=== PATIENT | male | born 1945 | race Caucasian/White ===

== ENCOUNTER → 2016-08-17 | Outpatient (CLI) | payer MEDICARE, BC | END | disposition home or self-care (01) | LOC: GMAJ 10:23 | PROVIDERS: ATTEND Family Medicine | DX: Z12.5 Encounter for screening for malignant neoplasm of prostate (principal) ==

== ENCOUNTER → 2017-12-19 | Outpatient (CLI) | payer MEDICARE, BC ==
--- NOTE | 2017-12-19 15:15 | US ---
EXAM DESCRIPTION: Venous,Lower Extremity LT CLINICAL HISTORY: PAIN IN LEFT LEG COMPARISON: None Available. TECHNIQUE: Left lower extremity venous duplex FINDINGS: Doppler evaluation of the left lower extremity deep veins was performed. Normal color flow is seen in the common femoral, superficial femoral, profunda femoral and greater saphenous veins. Normal flow is seen in the popliteal vein and veins below the knee in the calf. Normal venous compressibility and flow augmentation. IMPRESSION: Negative for evidence of deep venous thrombosis on the left lower extremity venous Doppler sonogram. Electronically signed by: Michael Flores MD 12/19/2017 3:14 PM CDT
== END ==
LOC: LAB.NP 12:36
PROVIDERS: ATTEND Physician Assistant
DX: M79.605 Pain in left leg (principal); R39.12 Poor urinary stream; Z12.5 Encounter for screening for malignant neoplasm of prostate

== ENCOUNTER → 2017-12-26 | Outpatient (CLI) | payer MEDICARE, BC ==
--- NOTE | 2017-12-26 09:59 | MRI ---
EXAM DESCRIPTION: Lumbar Spine w/o Contrast CLINICAL HISTORY: 72 years Male, LOW BACK PAIN COMPARISON: Radiographs of the lumbar spine dated 12/24/2017. MRI of the lumbar spine dated 08/11/2014. TECHNIQUE: Multiplanar multiecho imaging of the lumbar spine was performed without intravenous contrast administration. FINDINGS: There is straightening of the normal lordotic curvature of the lumbar spine. The vertebral body heights are well-maintained with no acute compression deformity. Multilevel intervertebral disc space narrowing is noted. The conus medullaris terminates at L2 vertebral body. The visualized spinal cord demonstrates no signal abnormality. L1-L2: Posterior disc osteophyte complex and facet arthropathy with no significant canal stenosis. There is mild bilateral neural foraminal narrowing. L2-L3: Diffuse disc bulge and facet arthropathy with no canal stenosis. There is moderate right and mild left neural foraminal narrowing. L3-L4: Diffuse disc bulge and bilateral facet arthropathy with no canal stenosis. Changes of posterior laminectomy are identified. Moderate bilateral neural foraminal narrowing is noted. L4-L5: Grade 2 anterolisthesis of L4 over L5. No canal stenosis. There is severe bilateral neural foraminal narrowing. L5-S1: Posterior disc osteophyte complex and facet arthropathy with no canal stenosis. There is moderate bilateral neural foraminal narrowing. A simple cyst is identified in the left kidney. Remainder of the visualized prevertebral and paravertebral soft tissues appear normal. IMPRESSION: Multilevel degenerative disc disease and facet arthropathy throughout the lumbar spine with changes worse at L4-L5 level. Electronically signed by: Reina Encarnacion MD 12/26/2017 9:58 AM CDT
== END ==
LOC: MRI 09:00
PROVIDERS: ATTEND Physician Assistant
DX: M51.16 Intervertebral disc disorders with radiculopathy, lumbar region (principal)

== ENCOUNTER 2017-12-28 10:50 | Inpatient (IN) | payer MEDICARE, BC ==
--- NOTE | 2017-12-28 11:13 | HP ---
SUPERVISING PHYSICIAN: Sony Machado M.D. CHIEF COMPLAINT: Hyponatremia and weakness. HISTORY OF PRESENT ILLNESS: Mr. Young is a 72 year-old male patient of Dr. Kahn. With his longstanding history within the last month of progressively worsening leg pain started on 12/11/17 when he was seen in regular checkup, at which point he worked out and feels like he stretched his leg too much, and started having some left leg pain that was radiating into his groin and back. He was then seen on the Sunday after the appointment. He continued to have worsening pain at which time he contacted EMS and was taken to [facility] where he was diagnosed with muscle spasms and started on Tramadol and muscle relaxer. On 12/19/17, he was having non significant relief and was seen the following Sunday at Dr. Kahn' office at which time he was diagnosed with prostatitis. Labs, Doppler and x-rays were done showing he was mildly hyponatremic and with a concern for prostatitis, was started on ciprofloxacin. Two days after he was having some improvement and then the next day his symptoms returned at which time he presented back to Dr. Kahn' office this week and was seen in followup, and again was noted to be hyponatremic. He was then back in the office today, on the date of admission, and again for followup and was found to have significant hyponatremia worse than previous days. He had been having apparently some confusion that was occurring over the last 4 to 5 days which his , an actual patient, feels like he is talking in circles. I was contacted by ARTHUR New, at the clinic after Dr. Kahn requested the patient be directly admitted to the Medical/Surgical floor at [facility] for further treatment and evaluation of the hyponatremia and confusion. The patient was directly admitted in stable condition. PAST MEDICAL HISTORY: 1. Mixed hyperlipidemia. 2. Hypertension. 3. Colonic polyps. 4. Diverticulosis. 5. Erectile dysfunction. PAST SURGICAL HISTORY: 1. No major surgeries. 2. He had a colonoscopy in 2003 with benign polyps and again in 2008 and noted to have diverticulosis. HOME MEDICATIONS: 1. Tylenol 650 mg t.i.d. 2. Fish oil 1,000 mg daily. 3. Motrin 400 mg b.i.d. 4. Cyclobenzaprine 10 mg every 8 hours as needed for pain. 5. Ultram 50 mg every 4 hours as needed. 6. Ciprofloxacin 500 mg b.i.d. 7. Trulance 3 mg daily. 8. Voltaren 75 mg b.i.d. as needed. 9. Aspirin 81 mg daily. 10. Metoprolol succinate 100 mg daily. 11. Amlodipine 5 mg daily. 12. Pravachol 40 mg at bedtime. 13. Losartan. 14. Potassium. 15. Hydrochlorothiazide 100-25 mg 1 tablet daily. ALLERGIES: NO KNOWN DRUG ALLERGIES. FAMILY HISTORY: Significant for cerebrovascular accidents, coronary artery disease in both mother and father. Mother at age 78 with hypertension. SOCIAL HISTORY: The patient is retired. Lives in [place], [place]. He was in the in the [employer] for 2 years. He is . He has a history of smoking in the past for well over 30 years, but quit approximately 30 years previously. He drinks a glass of wine very rarely. REVIEW OF SYSTEMS: CONSTITUTIONAL: Negative for any fatigue or fever, just generalized weakness. HEENT: Does have a headache that occurred in the last 4 to 5 days. No nasal congestion, ear aches, sore throat. CARDIOVASCULAR: Denies any chest pains, orthopnea, palpitations or pedal edema. RESPIRATORY: Denies any cough, dyspnea. GASTROINTESTINAL: Notes he has issues with constipation and recently started on Trulance. GENITOURINARY: As noted in history of present illness, acute prostatitis but denies any dysuria, hematuria or polyuria. EXTREMITIES: As noted in history of present illness, left sided hip pain radiating into his pelvis and groin area. NEUROLOGIC: Denies any dizziness. Does have a headache. Denies any ataxia, seizures or syncopal episodes. INTEGUMENT: No reported rashes or lesions or skin breakdown. PHYSICAL EXAMINATION: VITAL SIGNS: In the clinic shows temperature 97.9, blood pressure 142/74, pulse 59, respirations 16, satting 98% on room air. Weight in the clinic was 95.4 kg. GENERAL: The patient appears well hydrated in no acute distress. Very pleasant. He is alert. HEENT: Tympanic membranes are partially obscured by cerumen. Oropharynx was pink and moist without any lesions. NECK: Supple, non-tender with full range of motion. No jugular venous distention was noted. CHEST: Lungs are clear to auscultation bilaterally without any rhonchi, wheezing or rales. CARDIOVASCULAR: Regular rate and rhythm without appreciable murmurs, gallops, or rubs. ABDOMEN: Obese but soft, non-tender. Positive bowel sounds. EXTREMITIES: No clubbing, cyanosis or edema. NEUROLOGIC: Cranial nerves II-XII are grossly intact. Facial features were symmetrical. Extraocular movements are within normal limits. There was no notable nystagmus. No other lateralizing or focalized neurological deficits were noted. He was alert and oriented times three. LABORATORY: CBC shows a normal white count at 10,100, hemoglobin 12.1, hematocrit 34.6, platelet count 287,000. Differential does show a left shift. Sed rate was 35. Coagulation studies showed a normal PT and PTT. Chemistries showed sodium 125, potassium 3.2, chloride 86 with a normal anion gap at 13.2, BUN 31, creatinine 1.67. Serum osmolality 258, magnesium normal at 2.2. All liver functions were normal. C reactive protein was less than 0.5. Urinalysis showed to be within normal limits. PSA was pending. RADIOLOGY: Chest x-ray of two view chest per radiology interpretation showed no radiographic evidence of acute cardiopulmonary disease. CT of the head without contrast per radiology interpretation showed no hemorrhage or mass effect. No midline shift. There was noted a minimal periventricular low density in the white matter most likely related to aging and cerebral microvascular disease more prominent in the frontal lobes with atherosclerotic cerebrovascular calcifications. Pelvis and hip x-ray per radiology interpretation showed pronounced lower lumbar disc disease and mild to moderate bilateral hip osteoarthritis with small cam deformities with mild pubic symphysis osteoarthritis. No appreciable fractures of the pelvis or hips were identified, although evaluation of fractures is limited given the degree of osteopenia. ASSESSMENT: 1. Acute hyponatremia, uncertain etiology, with hyperosmolar presentation requiring further evaluation and management possibly secondary to worsening renal function with a noted GFR of 39 exacerbated by thiazide diuretics and NSAID usage. 2. Left hip pain with no evidence of acute trauma or fractures on radiographic studies with cam deformities bilaterally. Etiology uncertain. 3. Acute renal insufficiency possibly secondary to NSAID usage as well as exacerbated by thiazide diuretics. 4. Mild confusion and generalized weakness felt to be possibly secondary to his hyponatremia. 5. Osteopenia as noted on radiographic studies. 6. Acute prostatitis currently on ciprofloxacin. 7. Hypertension. 8. History of diverticulosis. 9. Electrolyte imbalance to include hyponatremia and hypokalemia possibly exacerbating underlying weakness and mild confusion, uncertain etiology. PLAN: The patient is going to be directly admitted to the Medical/Surgical floor for further evaluation of the hyponatremia. Will start him on some normal saline with 40 of potassium. Will hold his thiazide diuretic and limit his oral fluid intake to less than 1800 mL for 24 hours. Will closely monitor his I's and O's. Will plan to repeat laboratory studies in the morning to further evaluate for hyponatremia and kidney function. Will continue his oral medications as appropriate once they have been updated and verified. Will anticipate his length of stay to be at least 2 to 3 days until his sodium levels have normalized and he is no longer symptomatic. Until then, will continue to monitor and treat appropriately. #[id number] [facility]
[2017-12-28] MEDS ORDERED: SODIUM CHLORIDE 0.9% (FLUSH) 10 ML SYG IV PRN (11:17)
[2017-12-28] MEDS ORDERED: IV SET AND CAP CHANGE INJ INJ SCH (11:30)
[2017-12-28] MEDS: KCL 20 MEQ/NS 1,000 ML IVS PRN ×2 (13:23→19:29)
--- NOTE | 2017-12-28 13:31 | RAD ---
Frontal view pelvis. Frontal and frog-leg lateral views of the right hip and left hip. Indication: leg hip and groin pain Comparison: None. Impression: Pronounced lower lumbar disc disease. Mild to moderate bilateral hip osteoarthritis with small cam deformities. Mild pubic symphysis osteoarthritis. No appreciable fracture of the pelvis or hips identified. Evaluation for fracture is limited given the degree of osteopenia. If high clinical concern for acute fracture, correlation with MRI recommended given its greater sensitivity in the osteopenic patient. If the patient cannot tolerate MRI imaging or more urgent imaging is required, CT could be performed, however it is less sensitive in the osteopenic patient when compared to MRI. Osteopenia. If this is a new finding, DEXA scan recommended as well as evaluation for possible osteoporosis treatment. Electronically signed by: Reed Brown MD 12/28/2017 1:30 PM CDT
--- NOTE | 2017-12-28 13:31 | CT ---
EXAM DESCRIPTION: Head: Computed Tomography. CLINICAL HISTORY: BELLA ; hyponatremia. Inpatient. COMPARISON: CT scan of the chest on this visit. TECHNIQUE: Non-helical axial scans through the skull and brain, at 5.0 mm intervals, non-contrast. Axial 2.5 mm reconstructions. Coronal and sagittal 2.0 mm reconstructions. Total Exam DLP: 967.47 mGy-cm. This exam was performed according to our departmental dose-optimization program which includes automated exposure control, adjustment of the mA and/or kV according to patient size and/or use of iterative reconstruction technique; to reduce radiation dose to as low as reasonably achievable (ALARA). FINDINGS: No hemorrhage, no mass-effect, and no midline shift. Minimal bilateral periventricular low-density more evident in the bilateral frontal lobes. No abnormal radiodense material in the brain parenchyma. Vascular calcifications anterior and posterior circulations; physiologic calcifications in the pineal gland and choroid plexus. No effacement or displacement of the ventricles, CSF spaces, or subdural spaces. No extra axial fluid collection or hemorrhage. No gross abnormalities of the bony calvarium. Included paranasal sinuses and mastoid air cells are well - aerated. Bilateral tj bullosa in the middle nasal turbinates IMPRESSION: 1. No hemorrhage, no mass effect, no midline shift. Minimal periventricular low-density in the white matter is most likely related to aging and cerebral microvascular disease. More prominent in the frontal lobes. Atherosclerotic cerebrovascular calcifications. 2. CT scans are insensitive for detecting small CVAs in the first 24 hours after onset. Evaluation of the brain stem is also limited. If symptoms persist, consider NON-EMERGENT MRI scan of the brain with diffusion imaging. 3. Anatomic anomalies in the paranasal sinuses, probably not clinically significant at this time. Electronically signed by: Gurwinder Hernandez MD 12/28/2017 1:29 PM CDT
--- NOTE | 2017-12-28 13:40 | RAD ---
EXAM DESCRIPTION: Chest,2 Views CLINICAL HISTORY: cough; hyponatermia COMPARISON: None FINDINGS: Two-view chest x-ray shows cardiomediastinal silhouette and pulmonary vasculature to be within normal limits. The lungs are normally aerated and clear. Costophrenic angles are sharp. Moderate disc degenerative changes of the thoracic spine are seen. IMPRESSION: No radiographic evidence of acute cardiopulmonary disease. Electronically signed by: Lj Castillo MD 12/28/2017 1:39 PM CDT
--- NOTE | 2017-12-28 16:42 | PCM.CORE ---
Physician DVT/VTE - Nurse DVT Assessment & Total Each Risk Factor Represents 2 Points: Age 60-74 Each Risk Factor is 1 Point: Obesity (BMI >25) DVT Assessment Score: 3 - 5 or more Very High Risk Treatments: Early Ambulation *, Sequential Compression Device Pharmacological: Enoxaparin 40mg SQ Daily
[2017-12-28] MEDS: CIPROFLOXACIN 500 MG TAB PO SCH (20:31)
[2017-12-28] MEDS: ENOXAPARIN SODIUM 40 MG/0.4 ML SYG SUBCU SCH (20:31)
[2017-12-28] MEDS: SODIUM CHLORIDE 0.9% (FLUSH) 10 ML SYG IV SCH (20:32)
[2017-12-28] MEDS: ACETAMINOPHEN 325 MG TAB PO PRN (22:36)
[2017-12-29] MEDS: KCL 20 MEQ/NS 1,000 ML IVS PRN ×2 (02:44→15:46)
[2017-12-29] MEDS: ACETAMINOPHEN 325 MG TAB PO PRN (05:09)
[2017-12-29] MEDS ORDERED: HYDROcodone 5MG/APAP 325MG 1 EA TAB PO PRN (06:47)
[2017-12-29] MEDS ORDERED: HYDROCHLO PO SCH (09:00)
[2017-12-29] MEDS ORDERED: [UNRECOGNIZED DRUG - OTHER] PO SCH (09:00)
[2017-12-29] MEDS ORDERED: LOSARTAN POTASSIUM PO SCH (09:00)
[2017-12-29] MEDS ORDERED: DOCUSATE CALCIUM 240 MG CAP PO ONE (09:19)
[2017-12-29] MEDS ORDERED: MAGNESIUM HYDROXIDE 30 ML UD PO ONE (09:19)
[2017-12-29] MEDS: PLECANATIDE 3 MG PO SCH (09:40)
[2017-12-29] MEDS: ASPIRIN (CHEWABLE) 81 MG TAB PO SCH (09:42)
[2017-12-29] MEDS: FISH OIL 1,200 MG CAP PO SCH (09:42)
[2017-12-29] MEDS: METOPROLOL SUCCINATE XL 100 MG TAB PO SCH (09:42)
[2017-12-29] MEDS: amLODIPine BESYLATE 5 MG TAB PO SCH (09:42)
[2017-12-29] MEDS: LOSARTAN POTASSIUM 100 MG TAB PO SCH (09:42)
[2017-12-29] MEDS: CIPROFLOXACIN 500 MG TAB PO SCH ×2 (09:42→20:22)
[2017-12-29] MEDS: hydroCHLOROthiazide 25 MG TAB PO SCH (09:44)
[2017-12-29] MEDS: SODIUM CHLORIDE 0.9% (FLUSH) 10 ML SYG IV SCH ×2 (09:44→20:22)
[2017-12-29] MEDS: traMADol HCL 50 MG TAB PO PRN (14:01)
--- NOTE | 2017-12-29 16:10 | PN ---
DATE: 12/29/17 SUPERVISING PHYSICIAN: Wesly Flores M.D. SUBJECTIVE: The patient is resting in bed. He notes that his thinking process is much clearer today. He has had no nausea or vomiting or chest pains. He reports that he did have a significant amount of pain again this morning in his left leg but this resolved with [place]. He remains afebrile. OBJECTIVE: VITAL SIGNS: Temperature 98.2, pulse 62, blood pressure 154/68, respirations 16, satting 95% on room air. I's and O's show a positive balance of 1103 with 2603 in, 1500 out. Weight is 93.2 kg. CHEST: Lungs were clear to auscultation. HEART: Regular rate and rhythm. ABDOMEN: Soft, non-tender. Positive bowel sounds. EXTREMITIES: No clubbing, cyanosis or edema. Still does have some pain with extension and flexion of the left hip, but no obvious signs of trauma or deformity. NEUROLOGIC: He remains oriented times three. LABORATORY: Chemistries show an improving sodium at 132, potassium 3.6, BUN 25 , creatinine has gone down to 1.28 with calcium 8.5, creatinine kinase was 133. ASSESSMENT: 1. Acute hyponatremia with hypoosmolar presentation responding to normal saline infusion and fluid restrictions, and stopping thiazide diuretic. 2. Left hip pain, uncertain etiology, with no acute trauma or fractures noted on radiographic studies. 3. Acute renal insufficiency secondary to NSAID usage and some exacerbation by thiazide diuretics, improving. 4. Mild confusion and generalized weakness secondary to his hyponatremia, improving with normalization of his sodium 5. Osteopenia as noted on radiographic studies. 6. Acute prostatitis currently on ciprofloxacin. 7. Hypertension. 8. History of diverticulosis. 9. Electrolyte imbalance that included hyponatremia and hypokalemia exacerbating his weakness and confusion showing improvement of the sodium and normalization of potassium with IV fluids and fluid restrictions and holding thiazide diuretics. PLAN: Will continue with normal saline with potassium until later this afternoon in which time we will saline lock him and plan to recheck labs in the morning. He is encouraged to get up with assistance initially with the nurses and if no concerns for generalized weakness and falls, is encouraged to ambulate and sit in a chair as much as possible. He will continue with fluid restrictions and will hold his thiazide diuretic as well. Will plan to repeat his labs in the morning. Anticipate hopefully stabilization of his sodium and discharging tomorrow if possible. Until then, will continue to monitor and treat appropriately. #[id number] [facility]
[2017-12-29] MEDS: ENOXAPARIN SODIUM 40 MG/0.4 ML SYG SUBCU SCH (20:22)
[2017-12-30] MEDS: traMADol HCL 50 MG TAB PO PRN (05:28)
[2017-12-30] MEDS: FISH OIL 1,200 MG CAP PO SCH (08:53)
[2017-12-30] MEDS: ASPIRIN (CHEWABLE) 81 MG TAB PO SCH (08:54)
[2017-12-30] MEDS: LOSARTAN POTASSIUM 100 MG TAB PO SCH (08:54)
[2017-12-30] MEDS: CIPROFLOXACIN 500 MG TAB PO SCH (08:54)
[2017-12-30] MEDS: METOPROLOL SUCCINATE XL 100 MG TAB PO SCH (08:54)
[2017-12-30] MEDS: amLODIPine BESYLATE 5 MG TAB PO SCH (08:54)
[2017-12-30] MEDS: hydroCHLOROthiazide 25 MG TAB PO SCH (08:55)
[2017-12-30] MEDS: PLECANATIDE 3 MG PO SCH (08:56)
[2017-12-30 10:30] VITALS: BP 131/71; TEMP 98.3; O2SAT 95
--- NOTE | 2017-12-30 20:45 | DS ---
SUPERVISING PHYSICIAN: Dario Kahn M.D. ADMISSION DIAGNOSIS: 1. Acute hyponatremia. 2. Left hip pain. 3. Acute renal insufficiency. 4. Mild confusion and generalized weakness. 5. Osteopenia. 6. Acute prostatitis on Cipro. 7. Hypertension. 8. History of diverticulosis. DISCHARGE DIAGNOSIS: 1. Hyponatremia, resolved. 2. Left hip pain that has proven to be chronic and being worked up as an outpatient. 3. Renal insufficiency, resolved. 4. Mild confusion and generalized weakness, improved. 5. Osteopenia. 6. Acute prostatitis. Will continue on Cipro. 7. Hypertension, but will discontinue the HCTZ. 8. History of diverticulosis. HOSPITAL COURSE: This is a 72 year-old male patient who presented to Dr. Kahn ' office with chronic left leg pain. He was being worked up as an outpatient regarding his leg pain and went to Dr. Kahn' office for followup on date of admission. At that point, he was found to have significant hyponatremia on his labs and was also noted to have some confusion over the prior 4 to 5 days prior to admission. Due to these findings he was referred for admission by Dr. Kahn as a direct admission. Once he was over here, he was placed on IV fluids which is normal saline and had the HCTZ portion of his medications discontinued. The Cozaar actually was continued. All other medications were continued as well. Over the next couple of days his labs stabilized and he had a normal sodium level, and his potassium was within normal range as well. Therefore on date of discharge this morning he was discharged in stable condition with instructions to not continue the HCTZ. Therefore I wrote a separate prescription for his Cozaar to where it was not in combination with HCTZ. I instructed him to not take the combination medication and he verbalized understanding. I also instructed him that he will need to go to Dr. Kahn' office for followup laboratory tests and also continuation for the workup for his left leg pain. Currently he is not having any problems. I did a physical exam myself as he was complaining about some groin pain, and did not evaluate any physical abnormalities on exam. In fact, upon my evaluation he did not complain of any tenderness to palpation. PLAN: Followup appointment with Dr. Kahn within the next week or so. He already has one scheduled for the 10 of January, however as stated that he will at least need labs this following week. Discharge medications will include the Cozaar 100 mg daily and continue the Cozaar with HCTZ. Diet is as tolerated. Activity as tolerated as well. #[id number] [facility]
== END 2017-12-30 10:20 | disposition home or self-care (01) | DRG 641 ==
LOC: MS 10:50
PROVIDERS: ADMIT Nurse Practitioner Family; ATTEND Nurse Practitioner
DX: E87.1 Hypo-osmolality and hyponatremia (principal); N41.0 Acute prostatitis; N28.9 Disorder of kidney and ureter, unspecified; E87.6 Hypokalemia; M85.80 Other specified disorders of bone density and structure, unspecified site; R51 Headache; T50.2X5A Adverse effect of carbonic-anhydrase inhibitors, benzothiadiazides and other diuretics, initial encounter; T39.315A Adverse effect of propionic acid derivatives, initial encounter; I10 Essential (primary) hypertension; G89.29 Other chronic pain; M16.0 Bilateral primary osteoarthritis of hip; E78.2 Mixed hyperlipidemia; N52.9 Male erectile dysfunction, unspecified; Z79.1 Long term (current) use of non-steroidal anti-inflammatories (NSAID); Z79.82 Long term (current) use of aspirin; Z79.899 Other long term (current) drug therapy; Z87.891 Personal history of nicotine dependence; Y92.009 Unspecified place in unspecified non-institutional (private) residence as the place of occurrence of the external cause

== ENCOUNTER → 2018-04-05 | Outpatient (CLI) | payer MEDICARE, BC | LOC: GMATM 12:45 | PROVIDERS: ATTEND Nurse Practitioner Family | DX: R06.02 Shortness of breath (principal) ==

== ENCOUNTER → 2018-04-23 | Outpatient (CLI) | payer MEDICARE, BC | LOC: GMAJ 14:52 | PROVIDERS: ATTEND Family Medicine | DX: I50.32 Chronic diastolic (congestive) heart failure (principal) ==

== ENCOUNTER → 2018-09-11 | Outpatient (CLI) | payer MEDICARE, BC ==
--- NOTE | 2018-09-11 14:57 | US ---
US THYROID CLINICAL STATEMENT: THYROID NODULE. COMPARISON: None TECHNIQUE: Transcutaneous scanning, grayscale and Doppler modes. FINDINGS: Size right thyroid lobe: 4.9 x 2.5 x 1.7 cm Size left thyroid lobe: 4.4 x 1.8 x 1.5 cm Size isthmus: 0.3 cm Estimated total number of nodules greater than or equal to 1 cm: 1 Nodule 1: Size: 2.4 x 1.8 x 1.2 cm Location: Left Upper Composition: solid or almost completely solid: 2 points Echogenicity: hypoechoic: 2 points Shape: wider than tall: 0 points Margins: smooth: 0 points Echogenic foci: none: 0 points ACR Total Points: 4; ACR TI-RADS risk category: TR4 - moderately suspicious nodule. Nodule 2: Size: 0.7 x 0.6 x 0.5 cm Location: Left Mid Composition: mixed cystic and solid: 1 point Echogenicity: hypoechoic: 2 points Shape: wider than tall: 0 points Margins: smooth: 0 points Echogenic foci: none: 0 points ACR Total Points: 3; ACR TI-RADS risk category: TR3 - mildly suspicious nodule. Nodule 3: Size: 0.4 x 0.4 x 0.2 cm Location: Right Upper Composition: spongiform: 0 points Echogenicity: hypoechoic: 2 points Shape: wider than tall: 0 points Margins: smooth: 0 points Echogenic foci: none: 0 points ACR Total Points: 2; ACR TI-RADS risk category: TR2 - nonsuspicious nodule. The soft tissue around the thyroid gland shows no evidence of dominant solid mass or distinct cyst. No parenchymal edema or large calcifications. No overlying skin changes. Normal vascularity. IMPRESSION: 1. Nodule 1: ACR TI-RADS 2017 Category TR4. Recommend: Ultrasound-guided fine needle aspiration. Recommendations based upon [employer] Best Practice recommendations and ACR TI-RADS 2017 guidelines. Please see below*. 2. Nodule 2: ACR TI-RADS 2017 Category TR3. Recommend: No further follow-up. 3. Nodule 3: ACR TI-RADS 2017 Category TR2. Recommend: No further follow-up. 4. Soft tissue around the thyroid gland is unremarkable. *ACR TI-RADS 2017 Recommendations: TR1: No FNA or follow up TR2: No FNA or follow up TR3: FNA if >/= 2.5 cm, follow up if 1.5 - 2.4 cm in 1, 3, and 5 years TR4: FNA if >/= 1.5 cm, follow up if 1.0 - 1.4 cm in 1, 2, 3, and 5 years TR5: FNA if >/= 1.0 cm, follow up if 0.5 - 0.9 cm every year for 5 years ACR TI-RADS recommends that no more than two nodules with the highest ACR TI-RADS total point should be biopsied and no more than four nodules should be followed. These recommendations do not apply to patients with increased risk for thyroid cancer or patients with symptomatic thyroid disease. Electronically signed by: Gurwinder Hernandez MD 09/11/2018 2:54 PM CDT
== END ==
LOC: US 10:00
PROVIDERS: ATTEND Family Medicine
DX: E04.1 Nontoxic single thyroid nodule (principal)

== ENCOUNTER → 2018-09-30 | Outpatient (CLI) | payer MEDICARE, BC ==
--- NOTE | 2018-10-01 08:19 | US ---
Thyroid Biopsy, Image-Guided: Ultrasound CLINICAL INFORMATION: Left Thyroid nodule seen on prior ultrasound of the thyroid gland 09/11/2018. TECHNIQUE: Procedure was explained to the patient with risks and benefits. The patient gave verbal and written consent. Sterile preparation draping. 1% xylocaine dermal anesthetic 9-1 mixture with sodium bicarbonate. Sterile ultrasound guidance. A total of 6 passes left thyroid nodule; 3 needle samplings with a separate 1.5 inch, 25-gauge needle per sample, and 3 aspirations, with a separate 1.5 inch, 25-gauge needle/10-cc syringe set, per aspiration. Each sample was placed on a separate slide and fixed in 95% alcohol container. [place] fluid drawn into aspirate needle and rinse injected into [place] container. Specimens to be sent for pathologic examination at remote facility. . Patient tolerated procedure well. Biopsy #: 1 Nodule reference number based on prior diagnostic ultrasound:1 Maximum size: 2.4 cm Location: left; upper ACR TI-RADS risk category: TR4 (4-6 points) Reason for biopsy: meets ACR TI-RADS criteria Complications: None IMPRESSION: Successful ultrasound guided fine needle aspiration of left upper lobe thyroid nodule. ACR TI-RADS Risk Category TR 4 Electronically signed by: Gurwinder Hernandez MD 10/01/2018 8:16 AM CDT
== END ==
LOC: US 09:00
PROVIDERS: ATTEND Family Medicine
DX: E04.1 Nontoxic single thyroid nodule (principal)

== ENCOUNTER 2018-10-09 05:21 | Day surgery (SDC) | payer MEDICARE, BC ==
[2018-10-09] MEDS ORDERED: PROPOFOL 200 MG/20 ML VIAL IV ONE (07:00)
[2018-10-09] MEDS ORDERED: LACTATED RINGERS 1,000 ML ONE (07:54)
--- NOTE | 2018-10-09 13:31 | OP ---
DATE OF PROCEDURE: 10/09/18 PREPROCEDURE DIAGNOSIS: 1. Colorectal cancer screening. Last colonoscopy over 10 years ago. POSTPROCEDURE DIAGNOSIS: 1. Diverticulosis. 2. Internal hemorrhoids. PROCEDURE: 1. Colonoscopy. SURGEON: Mark Peterson MD COMPLICATIONS: No immediate complications. SEDATION: The patient was sedated via IV propofol by the Anesthesia Department. CONSENT: Prior to the procedure, risks, benefits and alternatives to the therapy were discussed with the patient. The risks included bleeding, infection, perforation and . The patient agreed to the procedure and signed a consent. PREPROCEDURE ANESTHESIA ASSESSMENT: Mallampati class type 2, ASA grade assessment type 2. Throughout the procedure, the patient's blood pressure and additional vital signs were closely monitored. PROCEDURE: The patient was placed in the left lateral decubitus position and a rectal examination was performed. The rectal examination was normal. The Olympus colonoscope was passed in the anus all the way into the cecum as identified by the ileocecal valve and appendiceal orifice. The scope was retracted and the mucosa was visualized. The entirety of the exam was performed under direct visualization. Preparation quality was good. The withdrawal time was greater than 6 minutes. The patient tolerated the procedure well. FINDINGS: 1. Scattered diverticula were found throughout the sigmoid and rectosigmoid colon. 2. Medium sized non-bleeding internal hemorrhoids were found in retroflexion. 3. No evidence of colonic polyps were found throughout the examination. RECOMMENDATION: 1. Return the patient home. 2. Resume previous diet favoring high-fiber foods. 3. Considering the patient's age, this may represent his last colonoscopy. May discuss with primary care provider in next 5 to 10 years additional comorbidities and need for additional screening at the time. 4. Return to referring physicians office as previously scheduled. 5. Return to my office p.r.n. 6. Findings were discussed with the patient and family members. #[id number]
[2018-10-09 14:00] VITALS: BP 159/60; TEMP 97.9; O2SAT 96
== END 2018-10-09 13:45 | disposition home or self-care (01) ==
LOC: AMB 05:21
PROVIDERS: ATTEND Internal Medicine Gastroenterology
DX: Z12.11 Encounter for screening for malignant neoplasm of colon (principal); K57.30 Diverticulosis of large intestine without perforation or abscess without bleeding; K64.8 Other hemorrhoids; I10 Essential (primary) hypertension; Z86.010 Personal history of colon polyps; Z88.8 Allergy status to other drugs, medicaments and biological substances; Z79.82 Long term (current) use of aspirin; Z79.899 Other long term (current) drug therapy
CPT/HCPCS: 00812; G0105; J3490; J7120

== ENCOUNTER → 2019-04-22 | Outpatient (CLI) | payer MEDICARE, BC | LOC: GMAJ 10:46 | PROVIDERS: ATTEND Family Medicine | DX: Z12.5 Encounter for screening for malignant neoplasm of prostate (principal); I10 Essential (primary) hypertension; E78.2 Mixed hyperlipidemia; I50.9 Heart failure, unspecified ==

== ENCOUNTER → 2019-09-25 | Outpatient (CLI) | payer MEDICARE, BC | DX: R00.2 Palpitations (principal) ==

== ENCOUNTER → 2020-04-26 | Outpatient (CLI) | payer MEDICARE, BC | LOC: GMAJ 16:49 | PROVIDERS: ATTEND Family Medicine | DX: Z12.5 Encounter for screening for malignant neoplasm of prostate (principal); I50.32 Chronic diastolic (congestive) heart failure; I10 Essential (primary) hypertension; E78.2 Mixed hyperlipidemia | CPT/HCPCS: 83880; G0103 ==